=== PATIENT | male | born 1950 | race Caucasian/White ===

== ENCOUNTER 2018-08-23 06:34 | Day surgery (SDC) | payer MEDICARE, OTHER ==
[~2018-08-23] VITALS: Ht 172.7 cm; Wt 85.3 kg
[~2018-08-23 06:34] MED LIST: CIPR500T94 PO; HYDR-2758 PO
[2018-08-23] MEDS ORDERED: POTA10TA12 PO (06:43)
[2018-08-23] MEDS ORDERED: LISI1TAB5 PO (06:43)
[2018-08-23] MEDS ORDERED: MELO15TA23 PO (06:45)
[2018-08-23] MEDS ORDERED: HYDR-963 PO (06:46)
[2018-08-23] MEDS ORDERED: FAMO20TA5 PO (06:47)
[2018-08-23] MEDS ORDERED: fentaNYL PF VIAL 100 MCG/2 ML VIAL IV PRN (07:00)
[2018-08-23] MEDS ORDERED: ONDANSETRON PF 4 MG/2 ML VIAL. IV PRN (07:00)
[2018-08-23] MEDS ORDERED: LIDOCAINE 1% PF 2 ML VIAL. ID PRN (07:00)
[2018-08-23] MEDS ORDERED: HYDROmorphone 2 MG/ML VIAL IV PRN (07:00)
[2018-08-23] MEDS: IV RINGERS,LACTATED 1000ML 1,000 ML IV SCH ×3 (07:13→11:53)
[2018-08-23] MEDS ORDERED: EPINEPHrine VIAL 30 MG/30 ML VIAL ONE (07:45)
[2018-08-23] MEDS ORDERED: MIDAZOLAM HCL/PF 2 MG/2 ML VIAL. ONE (08:05)
[2018-08-23] MEDS ORDERED: LIDOCAINE 2% PF 2ML VIAL. ONE (08:06)
[2018-08-23] MEDS ORDERED: BUPIVACAINE MPF 0.5% 30 ML VIAL. ONE (08:06)
[2018-08-23] MEDS ORDERED: DEXAMETHASONE SOD PHOS 20 MG/5 ML VIAL. ONE (08:40)
[2018-08-23] MEDS ORDERED: ONDANSETRON PF 4 MG/2 ML VIAL. ONE (08:40)
[2018-08-23] MEDS ORDERED: FAMOTIDINE 20 MG/2 ML VIAL ONE (08:40)
[2018-08-23] MEDS ORDERED: PROPOFOL 20 ML IV ONE ×2 (08:40→10:23)
[2018-08-23] MEDS ORDERED: ESMOLOL 100 MG/10 ML VIAL. IV ONE (08:42)
[2018-08-23] MEDS ORDERED: ROCURONIUM 50 MG/5 ML VIAL. ONE (08:42)
[2018-08-23] MEDS ORDERED: fentaNYL PF VIAL 100 MCG/2 ML VIAL ONE (09:28)
[2018-08-23] MEDS ORDERED: hydrALAZINE 20 MG/ML VIAL. ONE (09:30)
[2018-08-23] MEDS ORDERED: PHENYLEPHRINE in 0.9% NACL PF 1 MG/10 ML SYRINGE. IV ONE (09:57)
[2018-08-23] MEDS ORDERED: GLYCOPYRROLATE 1 MG/5 ML VIAL. ONE ×2 (10:14→12:40)
[2018-08-23] MEDS ORDERED: NEOSTIGMINE METHYLSULFATE 5 MG/5 ML SYRINGE. ONE ×2 (10:14→12:41)
[2018-08-23] MEDS ORDERED: SEVOFLURANE 61 TO 120 MINUTES. IH ONE (10:17)
[2018-08-23] MEDS: PROCHLORPERAZINE 10 MG/2 ML VIAL. IV PRN ×2 (10:58→11:10)
[2018-08-23] MEDS: MORPHINE SULFATE 2 MG/ML VIAL. IV PRN ×4 (10:59→12:09)
[2018-08-23] MEDS: fentaNYL PF VIAL 100 MCG/2 ML VIAL IV PRN ×3 (10:59→11:23)
[2018-08-23] MEDS ORDERED: oxyCODONE/APAP 7.5/325 1 TAB TABLET PO ONE (11:45)
[2018-08-23] MEDS ORDERED: KETOROLAC 30 MG/ML VIAL. IV ONE (12:00)
[2018-08-23] MEDS ORDERED: EPINEPHrine 1 MG/ML VIAL ONE (12:16)
[2018-08-23] MEDS ORDERED: BUPIVACAINE 0.5% 50 ML VIAL. ONE (12:16)
[2018-08-23] MEDS ORDERED: SEVOFLURANE > 120 MINUTES. IH ONE (12:41)
[2018-08-23] MEDS ORDERED: OXYC-327 PO (13:35)
[2018-08-23 13:40] VITALS: BP 88/45
--- NOTE | 2018-08-23 16:17 | PDOC4 ---
Operative Note Operative Note Date of surgery: 08/23/2018 Preoperative diagnosis: Superior labral tear with biceps anchor compromise and likely long head biceps subluxation, possible subscapularis tear Postoperative diagnosis: Same with intact subscapularis and rotator cuff insertion Operative procedure: Right shoulder arthroscopy debridement of superior labrum and biceps tenodesis Surgeon: Alden Anesthesia: Gen. plus scalene block Estimated blood loss: 15 mL Complications: None Operative indications: Jean is a 67-year-old male with right shoulder pain mainly anterior over the area of the biceps in nature and MRIs suspicious for superior labral injury and biceps anchor compromise with possible superior involvement of the subscapularis. I had gone over with him the operative and nonoperative treatment options associated with these conditions and the recommended operative treatment of likely a biceps tenodesis and possibly subscapularis repair if indicated. I told him that I would also do any other procedures as indicated as well but generally covered risks benefits postoperative course of continued pain nonhealing infection nerve or blood vessel damage medical or other anesthetic complications among others and went over the postoperative restrictions and rationale. All his questions were answered he wishes to proceed with surgical evaluation and treatment. Operative text: Patient was identified procedure verified patient placed in the supine position on the operating table. After adequate amounts of general endotracheal anesthesia plus pre-existing scalene block were obtained he was placed in the decubitus position right side up all bony prominences were well- padded and the right upper extremity was prepped and draped in standard shell fashion. After timeout was performed patient procedure identified and verified the right arm was placed in the arthroscopic arm rowan with a total of 15 pounds of traction standard posterior portal was established an anterior portal established using spinal knee localization and the shoulder joint was systematically examined. He was noted to have significant compromise of the biceps anchor and superior labrum. The biceps tendon was tagged intra- articularly and was detached with bipolar electrocautery from the superior labrum which was debrided to stable tissue. Subscapularis was thoroughly examined biceps did not appear to be subluxing and the subscapularis footprint appeared overall intact on examination capsule ligament structures were normal in appearance glenohumeral joint was well preserved normal bare area of the humerus was noted and minimal involvement of the remaining labrum. A small incision was made over the bicipital groove biceps tendon was retrieved tensioned appropriately and Elida D stem using an 8 mm drill hole and an absorbable [employer] biceps tenodesis screw. Excellent bite was obtained biceps was well tensioned anatomically thorough irrigation carried out normal saline solution closure accomplished with buried Vicryl subcuticular Monocryl Steri-Strips and Mastisol sterile dressings were applied patient was returned to recovery room in stable condition having tolerated procedure well CYNTHIA BURR MD Aug 23, 2018 16:17
== END 2018-08-23 13:58 | disposition home or self-care (01) ==
LOC: SURG 06:34
PROVIDERS: ATTEND Orthopaedic Surgery
DX: S43.431A Superior glenoid labrum lesion of right shoulder, initial encounter (principal); E78.00 Pure hypercholesterolemia, unspecified; Z87.442 Personal history of urinary calculi; Z98.890 Other specified postprocedural states; Z81.8 Family history of other mental and behavioral disorders; Z83.6 Family history of other diseases of the respiratory system; F17.210 Nicotine dependence, cigarettes, uncomplicated; Z79.82 Long term (current) use of aspirin; Z79.899 Other long term (current) drug therapy; X58.XXXA Exposure to other specified factors, initial encounter; Y93.89 Activity, other specified; Y92.89 Other specified places as the place of occurrence of the external cause; Y99.8 Other external cause status
CPT/HCPCS: 29828; A7015; C1713; J0171; J0360; J0690; J0780; J1100; J1885; J2001; J2250; J2270; J2370; J2405; J2704; J2710; J3010; J3490; J7120; S0028

== ENCOUNTER → 2019-01-17 | Outpatient (CLI) | payer MEDICARE, OTHER ==
[~2019-01-17] MED LIST changes: +FAMO20TA5 PO; -HYDR-2758 PO; +HYDR-2761 PO; +HYDR-3135 PO; +LISI1TAB5 PO; +MELO15TA23 PO; +OXYC1TAB19 PO; +POTA10TA12 PO
--- NOTE | 2019-01-17 16:32 | KCIC ---
MR of the right shoulder Indication: Right shoulder pain, chronic. History of biceps surgery last August.. Comparison: None are available. Technique: Standard multiplanar sequences are obtained. Findings: Moderate motion degradation. Acromioclavicular joint is mildly degenerative. Heterogeneous signal within the supraspinatus tendon compatible with tendinosis. There is broad undersurface tearing of the supraspinatus tendon with a more focal subcentimeter area of deep involvement, about 80% across, best seen on coronal series 6, image 8. Partial subscapularis tendon tear. Trace subdeltoid bursal effusion. No significant joint effusion. Mild degenerative changes at the glenohumeral joint. No definite labral detachment but detection could be limited due to motion degradation. Biceps tendon is poorly seen, likely due to surgical intervention. There is an anchor screw at the lesser tuberosity may be due to surgical tenodesis. No bone destruction or acute fracture. No acute soft tissue abnormality. IMPRESSION: 1. Partial-thickness undersurface tear of the supraspinatus tendon, with a small but deep subcomponent. Partial subscapularis tendon tear. 2. Nonvisualized biceps tendon presumably due to surgical tenodesis. Electronically signed by: Anand Workman MD (01/17/2019 4:29 PM) [facility]
== END | disposition home or self-care (01) ==
LOC: KCIC MRI 14:12
PROVIDERS: ATTEND Orthopaedic Surgery
DX: M75.101 Unspecified rotator cuff tear or rupture of right shoulder, not specified as traumatic (principal)
CPT/HCPCS: 73221

== ENCOUNTER → 2019-09-23 | Outpatient (CLI) | payer MEDICARE, OTHER ==
[~2019-09-23] MED LIST changes: +LISI1TAB19 PO; -LISI1TAB5 PO
--- NOTE | 2019-09-24 10:14 | KCIC ---
MRI study of the right shoulder without contrast Clinical indications: Right shoulder pain. Bicipital tendinitis. History of shoulder reconstruction. TECHNIQUE: Noncontrast MRI sequences of the right shoulder were performed in all 3 planes. COMPARISON: January 17, 2019. FINDINGS: There is increased signal within the supraspinatus tendon consistent with tendinosis. Again seen is intratendinous fluid within the supraspinatus tendon. This has increased in size and medial extent extending all way into the muscle of the supraspinatus. The transverse extent of this process is almost 9 cm. This is consistent with a delamination substance tear. No complete rotator cuff tear is seen otherwise. The previously seen partial subscapularis tendon tear is not evident today. However, there is atrophy of the superior one half of this muscle. This was seen previously. No subdeltoid or subacromial bursitis is seen. 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 There is spurring of the inferior edge of the acromial process. Type III acromial process is seen. These findings may impinge the acromial humeral space. Mild chronic cystic change of the lateral aspect of the humeral head is seen secondary to chronic impingement. No marrow infiltrative process or fracture or bone contusion is seen. Postsurgical changes are seen within the bicipital groove presumably secondary to tenodesis. No fluid distention of the biceps tendinous sheath is evident. The tendon of the long head of the biceps is not visualized within the joint space or upper bicipital groove. The glenoid labrum is intact. There is mild degenerative spurring of the glenohumeral joint. No significant glenohumeral joint effusion is seen. IMPRESSION: Increase in size of fluid and cyst within the substance of the supraspinatus tendon and muscle consistent with progression of delamination substance tear of the subscapularis muscle and tendon. Otherwise no complete rotator cuff tear is seen. Electronically signed by: Sal Oleary MD (09/24/2019 10:11 AM) [facility]
== END | disposition home or self-care (01) ==
LOC: KCIC MRI 15:00
PROVIDERS: ATTEND Orthopaedic Surgery
DX: M19.011 Primary osteoarthritis, right shoulder (principal); M62.511 Muscle wasting and atrophy, not elsewhere classified, right shoulder; M75.81 Other shoulder lesions, right shoulder; M75.21 Bicipital tendinitis, right shoulder
CPT/HCPCS: 73221

== ENCOUNTER 2020-01-12 13:34 | Inpatient (IN) | payer MEDICARE, OTHER ==
[~2020-01-12] VITALS: Ht 170.2 cm; Wt 83.5 kg
[~2020-01-12 13:34] MED LIST changes: -POTA10TA12 PO; +POTASSIUM CHLO10 ME1 PO
[2020-01-12 14:15] VITALS: BP 147/78
[2020-01-12] MEDS ORDERED: LISI-334 PO (14:16)
[2020-01-12] MEDS ORDERED: TAMS0.4C97 PO (14:16)
[2020-01-12] MEDS ORDERED: CHOL200078 PO (14:16)
[2020-01-12] MEDS ORDERED: HYDR-2763 PO (14:16)
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
[2020-01-12] MEDS ORDERED: POLYETHYLENE GLYCOL 3350 17 GM PACKET. PO PRN (14:30)
[2020-01-12] MEDS ORDERED: DOCUSATE SODIUM 100 MG CAPSULE. PO PRN (14:30)
[2020-01-12] MEDS: fentaNYL PF VIAL 100 MCG/2 ML VIAL IVP PRN ×2 (14:50→19:56)
[2020-01-12] MEDS ORDERED: IV NORMAL SALINE 1000ML BAG 1,000 ML IV ONE (15:00)
[2020-01-12 19:20] VITALS: BP 159/96
[2020-01-12] MEDS: HYDROcodone/APAP 7.5/325MG 1 TAB TABLET PO PRN (19:56)
[2020-01-12] MEDS ORDERED: TAMSULOSIN 0.4 MG CAP.ER.24H. PO SCH (21:00)
[2020-01-12 23:50] VITALS: BP 138/93
[2020-01-13] MEDS: HYDROcodone/APAP 7.5/325MG 1 TAB TABLET PO PRN ×4 (00:09→13:44)
[2020-01-13] MEDS: fentaNYL PF VIAL 100 MCG/2 ML VIAL IVP PRN ×6 (00:10→12:17)
[2020-01-13 03:20] VITALS: BP 165/95
[2020-01-13 07:00] VITALS: BP 122/56
[2020-01-13] MEDS ORDERED: POTASSIUM CHLORIDE 10 MEQ TABLET.ER. PO SCH (08:00)
[2020-01-13] MEDS ORDERED: CHOLECALCIFEROL (VITAMIN D3) 1,000 UNIT TABLET PO SCH (09:00)
[2020-01-13] MEDS ORDERED: LISINOPRIL 20 MG TABLET PO SCH (09:00)
[2020-01-13 11:00] VITALS: BP 159/91
[2020-01-13 12:05] LABS: BASO % 0 % (0-3); EOS # 0.2 x10^3/uL (0.0-0.7); EOS % 3 % (0-3); HEMATOCRIT 38.1 % (39.0-53.0); HEMOGLOBIN 13.2 g/dL (13.0-17.5); LYMPH # 1.5 x10^3/uL (1.0-4.8); LYMPH % 18 % (24-48); MEAN CORPUSCULAR HEMOGLOBIN 33 pg (25-35); MEAN CORPUSCULAR HGB CONC 35 g/dL (31-37); MEAN CORPUSCULAR VOLUME 94 fL (79-100); MONO # 1.2 x10^3/uL (0.0-1.1); MONO % 14 % (0-9); NEUT # 5.4 x10^3/uL (1.8-7.7); NEUT % 65 % (31-73); PLATELET COUNT 224 x10^3/uL (140-400); RED BLOOD COUNT 4.04 x10^6/uL (4.30-5.70); RED CELL DISTRIBUTION WIDTH 13.3 % (11.5-14.5); WHITE BLOOD COUNT 8.2 x10^3/uL (4.0-11.0)
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
[2020-01-13 12:36] LABS: ALBUMIN 3.3 g/dL (3.4-5.0); ALBUMIN/GLOBULIN RATIO 1.1 (1.0-1.7); CALCIUM 8.8 mg/dL (8.5-10.1); CREATININE 0.9 mg/dL (0.7-1.3); GFR 84.2; POTASSIUM 4.2 mmol/L (3.5-5.1); TOTAL BILIRUBIN 0.6 mg/dL (0.2-1.0); TOTAL PROTEIN 6.2 g/dL (6.4-8.2)
[2020-01-13] MEDS ORDERED: HYDR-2763 PO (12:40)
[2020-01-13] MEDS ORDERED: GUAI120L35 PO (12:40)
[2020-01-13 12:43] LABS: FREE T4 1.09 ng/dL (0.76-1.46); THYROID STIM HORMONE (TSH) 1.939 uIU/mL (0.358-3.74)
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
== END 2020-01-13 13:59 | disposition home or self-care (01) | DRG 563 ==
LOC: 6 SOUTH 13:34
PROVIDERS: ADMIT Family Medicine; ATTEND Family Medicine
DX: S52.511A Displaced fracture of right radial styloid process, initial encounter for closed fracture (principal); M48.56XA Collapsed vertebra, not elsewhere classified, lumbar region, initial encounter for fracture; S20.219A Contusion of unspecified front wall of thorax, initial encounter; S61.411A Laceration without foreign body of right hand, initial encounter; F17.210 Nicotine dependence, cigarettes, uncomplicated; I10 Essential (primary) hypertension; J44.9 Chronic obstructive pulmonary disease, unspecified; N40.0 Benign prostatic hyperplasia without lower urinary tract symptoms; V47.5XXA Car driver injured in collision with fixed or stationary object in traffic accident, initial encounter; Y92.410 Unspecified street and highway as the place of occurrence of the external cause; Y93.89 Activity, other specified; Y99.8 Other external cause status; Z82.49 Family history of ischemic heart disease and other diseases of the circulatory system
CPT/HCPCS: 36415; 80053; 84439; 84443; 85025; J3010; J7030; G0378